=== PATIENT | female | born 1965 ===

== ENCOUNTER → 2016-09-05 | Outpatient (CLI) | payer OTHER ==
--- NOTE | 2016-09-05 13:26 | KCIC ---
Pelvis x-ray Indication: Fall and low back pain. Time of exam 12:22 p.m. Femoral acetabular alignment is normal bilaterally. Both femoral heads and necks are intact. The rami are intact. SI joints and symphysis are not widened. No fractures are seen. Impression: No acute bony abnormality is detected. Electronically signed by: Yifan Barnhart MD (Sep 05, 2016 13:24:56)
--- NOTE | 2016-09-05 13:27 | KCIC ---
Sacrum and coccyx Indication: Fall and pain. Time of exam 12:26 p.m. Sacrococcygeal alignment appears to be normal. No definite fracture is identified. The sacral arcuate lines are intact. SI joints are not widened. Impression: No acute bony abnormality is detected. Electronically signed by: Yifan Barnhart MD (Sep 05, 2016 13:26:04)
== END | disposition home or self-care (01) ==
LOC: KCIC 11:59
PROVIDERS: ATTEND Nurse Practitioner Family
DX: M54.5 Low back pain (principal); W19.XXXA Unspecified fall, initial encounter; Y93.89 Activity, other specified; Y92.89 Other specified places as the place of occurrence of the external cause; Y99.8 Other external cause status
CPT/HCPCS: 72170; 72220

== ENCOUNTER → 2017-10-15 | Outpatient (CLI) | payer OTHER | END | disposition home or self-care (01) | LOC: KCIC MAMMO 15:42 | DX: Z12.31 Encounter for screening mammogram for malignant neoplasm of breast (principal) | CPT/HCPCS: 77067 ==